=== PATIENT | female | born 1965 | race African-American/Black ===

== ENCOUNTER 2019-04-01 14:44 | Emergency (ER) | payer MEDICAID, OTHER ==
[~2019-04-01] VITALS: Ht 170.2 cm; Wt 81.0 kg
[2019-04-01 14:49] VITALS: Ht 170.2 cm; Wt 81.0 kg
--- NOTE | 2019-04-01 14:58 | ERD ---
ER Documentation Chief Complaint Chief Complaint SUICIDAL THOUGHTS , WANTS TO RUN INTO TRAFFIC , NECK , BACK PAIN HPI 53-year-old female who presents to the emergency room with depression, anxiety, suicidal thoughts with a plan to run into traffic. She states that she needs to talk to a psychiatrist to be hospitalized. She is immediately asking for food and narcotic pain medication for chronic neck and back pain. Her neck and back pain is subacute and chronic and similar to chronic pain without exacerbating signs or symptoms. She states that she needs Dilaudid for her pain. Pain is characterized as dull, constant and cannot characterize duration. ROS All systems reviewed and are negative except as per history of present illness. Medications Home Meds Unable to Obtain Active Prescriptions or Reported Meds Allergies Allergies: Coded Allergies: Unknown: Unable to obtain (Unverified , 04/01/19) FmHx Family History: No diabetes Physical Exam Vitals Vital Signs Date Temp Pulse Resp B/P (MAP) Pulse Ox O2 O2 Flow FiO2 Time Delivery Rate 04/01/19 98.1 90 18 151/82 98 14:49 (105) Physical Exam General: Well developed, well nourished, no acute distress Head: Normocephalic, atraumatic. Eyes: EOM intact ENT: Moist mucous membranes Neck: Full ROM Respiratory: No respiratory distress Cardiovascular: Well perfused distally Abdominal: Nondistended : Deferred MSK: No edema, no unilateral swelling, 5/5 strength Neurologic: Alert and oriented, moving all extremities, normal speech, steady gait Skin: No rash Psych: Depressed mood, suicidal ideation, plan Result Diagram: 04/01/19 1524 04/01/19 1524 Results 24 hrs Laboratory Tests Test 04/01/19 15:10 04/01/19 15:24 Urine Opiates Screen Negative Urine Barbiturates Negative Urine Amphetamines Screen Negative Urine Benzodiazepines Screen Positive Urine Cocaine Screen Negative Urine Cannabinoids Negative White Blood Count 6.7 10^3/ul Red Blood Count 3.92 10^6/ul Hemoglobin 11.4 g/dl Hematocrit 37.1 % Mean Corpuscular Volume 94.6 fl Mean Corpuscular Hemoglobin 29.1 pg Mean Corpuscular Hemoglobin Concent 30.7 g/dl Red Cell Distribution Width 13.9 % Platelet Count 222 10^3/UL Mean Platelet Volume 12.2 fl Immature Granulocytes % 0.400 % Neutrophils % 72.1 % Lymphocytes % 20.3 % Monocytes % 5.0 % Eosinophils % 1.8 % Basophils % 0.4 % Nucleated Red Blood Cells % 0.0 /100WBC Immature Granulocytes # 0.030 10^3/ul Neutrophils # 4.9 10^3/ul Lymphocytes # 1.4 10^3/ul Monocytes # 0.3 10^3/ul Eosinophils # 0.1 10^3/ul Basophils # 0.0 10^3/ul Nucleated Red Blood Cells # 0.0 10^3/ul Sodium Level 143 mmol/L Potassium Level 3.8 mmol/L Chloride Level 106 mmol/L Carbon Dioxide Level 27 mmol/L Anion Gap 10 Blood Urea Nitrogen 12 mg/dl Creatinine 0.72 mg/dl Est Glomerular Filtrat Rate mL/min > 60 mL/min Glucose Level 100 mg/dl Calcium Level 9.8 mg/dl Ethyl Alcohol Level < 10.0 mg/dl Current Medications Medications Dose Sig/Trace Start Time Status Last (Trade) Ordered Route PRN Stop Time Admin Dose Reason Admin 1 tab ONCE ONCE 04/01/19 DC 04/01/19 Acetaminophen PO 15:00 15:41 / 04/01/19 15:01 Hydrocodone Bitart ([place] ()) Procedures/MDM EKG/DIAGNOSTIC IMAGING: [None Required] LAB INTERPRETATION: [No acute process] MEDICAL DECISION MAKING: The patient's presentation is consistent with underlying psychiatric illness and likely exacerbation of this illness and/or psychosis. There is a very strong suspicion for drug-seeking behavior, malingering. The patient immediately is asking for food, drink and narcotic pain medication. Her suicidal thoughts seem to be an afterthought for her. However, the patient is describing possible plan and warrants psychiatric evaluation. I have a much lower clinical concern for delirium or acute organic pathology such as toxicologic, metabolic, ischemic, intracranial hemorrhage, infectious process. However, we must rule this out prior to relying a diagnosis of underlying psychiatric illness. The patient's workup will include medical screening examination and appropriate laboratory testing. If the patient's medical examination does not reveal acute organic pathology the patient will be medically cleared for psychiatric evaluation. ER COURSE: * Patient will not need IV or IM narcotics for chronic pain. A single dose of oral [place] will be provided. No further dosing necessary. * The patient's low back pain is unlikely related to serious etiology. The patient exhibits no clinical signs or symptoms and has no history or risk fac tors to suggest cauda equina, cord compression, epidural abscess, epidural hematoma, acute aortic aneurysm or dissection. * The patient's evaluation does not suggest an acute organic pathology. At this time I believe the patient's presentation is very consistent with underlying psychiatric illness. The patient is medically cleared for psychiatric evaluation. CONSULTATION: Psychiatric consultation: Telemetry medicine psychiatry has been consulted on this case to evaluate the patient for possible acute psychiatric illness that would require inpatient hospitalization. DISPOSITION PLAN: Pending psych placement Departure Diagnosis: Primary Impression: Suicidal ideation Additional Impressions: Chronic pain Chronic pain type: other chronic pain Qualified Codes: G89.29 - Other chronic pain Drug-seeking behavior Malingering Condition: Stable SUSANNA RODRIGUEZ MD April 01, 2019 14:58
[2019-04-01] MEDS ORDERED: HYDROCODONE/APAP (10/325) TAB PO ONE (15:00)
--- NOTE | 2019-04-01 16:20 | PSY ---
Date/Time of Note Date/Time of Note DATE: 04/01/19 TIME: 19:15 Psychiatric Subjective Eval Consent Pt consented to telemedicine: Yes Subjective Evaluation Patient location: emergency Chief Complaint: SUICIDAL THOUGHTS , WANTS TO RUN INTO TRAFFIC , NECK , BACK PAIN History of present illness HPI: 53 yo female comes to Ed reporting a desire for food and dilaudid and also reported that she wants to kill herself by running into traffic. Psych was consulted. Pt was very uncooperative, told Md she does not know why she is in ED, says the only med that works for her is xanax though did not report why she would need xanax. Denies si and denies that she reported si. Denies psychosis. Past Psych Hx: + psych admits denies ho suicide PMhx: denies All: pt says she can only take xanax MSE: uncooperative, would not look at MD, stays under covers, vague evasive pacheco es si poor insight/reliability Imp: 53 yo female previously reported si now denies voluntary psych admit for previous si For moderate agitation Zyprexa 5mg po prn For severe agitation chlorpromazine 25mg im prn consider re eval when pt able to better engage in interview Medical history Problems Medical Problems: (1) Chronic pain Status: Acute (2) Drug-seeking behavior Status: Acute (3) Malingering Status: Acute (4) Suicidal ideation Status: Acute Allergies: Coded Allergies: Unknown: Unable to obtain (Unverified , 04/01/19) Psychiatric Objective Eval Mental Status Examination: Laboratory Results Laboratory Tests Test 04/01/19 15:10 04/01/19 15:24 Urine Opiates Screen Negative Urine Barbiturates Negative Urine Amphetamines Screen Negative Urine Benzodiazepines Screen Positive Urine Cocaine Screen Negative Urine Cannabinoids Negative White Blood Count 6.7 10^3/ul Red Blood Count 3.92 10^6/ul Hemoglobin 11.4 g/dl Hematocrit 37.1 % Mean Corpuscular Volume 94.6 fl Mean Corpuscular Hemoglobin 29.1 pg Mean Corpuscular Hemoglobin Concent 30.7 g/dl Red Cell Distribution Width 13.9 % Platelet Count 222 10^3/UL Mean Platelet Volume 12.2 fl Immature Granulocytes % 0.400 % Neutrophils % 72.1 % Lymphocytes % 20.3 % Monocytes % 5.0 % Eosinophils % 1.8 % Basophils % 0.4 % Nucleated Red Blood Cells % 0.0 /100WBC Immature Granulocytes # 0.030 10^3/ul Neutrophils # 4.9 10^3/ul Lymphocytes # 1.4 10^3/ul Monocytes # 0.3 10^3/ul Eosinophils # 0.1 10^3/ul Basophils # 0.0 10^3/ul Nucleated Red Blood Cells # 0.0 10^3/ul Assessment and Plan Recommendation/Plan Multiple antipsychotics: No Discharge Disposition: Psychiatric inpatient Legal Status: Voluntary RAS GABRIEL April 01, 2019 16:20
[2019-04-01] MEDS ORDERED: LORAZEPAM 1 MG TAB PO ONE (19:00)
[2019-04-02] MEDS ORDERED: LORAZEPAM 1 MG TAB PO ONE (09:30)
[2019-04-02] MEDS ORDERED: HYDROCODONE/APAP (5/325) TAB PO ONE (09:30)
--- NOTE | 2019-04-02 12:02 | EN ---
Date/Time of Note Date/Time of Note DATE: 04/02/19 TIME: 11:58 ER Progress Note This is a 53-year-old female that had been initially seen and evaluated in the emergency department for depression and feelings of hopelessness. She had been in the emergency department for 21 hours and 17 minutes. She initially was seen by the telemetry psychiatrist and she did not meet criteria for 5150 but she did agree to a voluntary hold. However the patient now states she was no longer suicidal. She was not in any pain. She stated she wanted to be discharged. She was seen by our psychosocial rehabilitation counselor and we did feel that the patient was safe to be discharged as at this time the patient did not appear to be a threat to herself or others. She was given bus tokens to assist her back to her living facility. She was instructed however that she can return to the emergency department anytime if there is worsening of her symptoms. KIRSTEN TYSON MD April 02, 2019 12:02
[2019-04-02 12:17] VITALS: BP 124/68; PULSE 75; RESP 16
== END 2019-04-02 12:18 | disposition home or self-care (01) ==
LOC: E/R 14:44
DX: R45.851 Suicidal ideations (principal); G89.29 Other chronic pain; Z72.89 Other problems related to lifestyle
CPT/HCPCS: 80048; 80307; 84703; 85025; Z7502; Z7610; 99283

== ENCOUNTER 2019-05-17 23:27 | Emergency (ER) | payer MEDICAID ==
[~2019-05-17] VITALS: Ht 170.2 cm; Wt 82.0 kg
[2019-05-17 23:30] VITALS: Ht 170.2 cm; Wt 82.0 kg
--- NOTE | 2019-05-18 00:04 | ERD ---
ER Documentation Chief Complaint Chief Complaint Pt reports SI, R side numbness, Pt reports stroke 05/10/19 HPI This is a 53-year-old female with a history of anxiety and depression who prese nts for evaluation of generalized body pain, as well as suicidal ideations without a plan. The patient is very guarded on evaluation, and gives a limited history. She states that she had a stroke on May 10, she is withholding both of what her symptoms were as well as which hospital, states "I do not know I just have body pain". Additionally she states that she is feeling suicidal and anxious. ROS All systems reviewed and are negative except as per history of present illness. Medications Home Meds Unable to Obtain Active Prescriptions or Reported Meds Allergies Allergies: Coded Allergies: Unknown: Unable to obtain (Unverified , 04/01/19) PMhx/Soc History of Surgery: Yes (HYSTERECTOMY, TONSILLECTOMY) Anesthesia Reaction: No Hx Neurological Disorder: Yes (CVA) Hx Respiratory Disorders: No Hx Cardiac Disorders: No Hx Psychiatric Problems: Yes (DEPRESSION) Hx Miscellaneous Medical Probl: No Hx Alcohol Use: Yes Hx Substance Use: No Hx Tobacco Use: No Smoking Status: Unknown if ever smoked Physical Exam Vitals Vital Signs Date Temp Pulse Resp B/P (MAP) Pulse Ox O2 O2 Flow FiO2 Time Delivery Rate 05/17/19 97.8 68 20 124/77 98 Room Air 23:40 (93) 05/17/19 98.3 69 20 147/65 97 23:30 (92) Physical Exam Const: Well-developed, well-nourished, affect is flat Head: Atraumatic Eyes: Normal Conjunctiva ENT: Normal External Ears, Nose and Mouth. Neck: Full range of motion. No meningismus. Resp: Clear to auscultation bilaterally Cardio: Regular rate and rhythm, no murmurs Abd: Soft, non tender, non distended. Normal bowel sounds Skin: No petechiae or rashes Back: No midline or flank tenderness Ext: No cyanosis, or edema Neur: Awake and alert, cranial nerves II through XII intact, no cerebellar ataxia, speech is clear Psych: Normal Mood and Affect Procedures/MDM 53-year-old female presents for generalized body pain and anxiety. Patient reports a prior history of stroke, she reports no new deficits. On exam she has no focal neuro deficits, no signs or symptoms of an acute CVA. Additionally, she states that her symptoms have been going on since 10 May, when she was diagnosed in outside hospital that she would not be in the window for TPA. She is otherwise medically clear and afebrile and nontoxic-appearing, she will require psychiatric consult for suicidal ideations. Departure Diagnosis: Primary Impression: Suicidal ideation Condition: SAULO Jolley MD May 18, 2019 00:04
--- NOTE | 2019-05-18 00:19 | PSY ---
Date/Time of Note Date/Time of Note DATE: 05/18/19 TIME: 00:18 Psychiatric Subjective Eval Consent Pt consented to telemedicine: Yes Subjective Evaluation Patient location: emergency Chief Complaint: Pt reports SI, R side numbness, Pt reports stroke 05/10/19 Medical history Problems Medical Problems: (1) Chronic pain Status: Acute (2) Drug-seeking behavior Status: Acute (3) Malingering Status: Acute (4) Suicidal ideation Status: Acute (5) Suicidal ideation Status: Acute Allergies: Coded Allergies: Unknown: Unable to obtain (Unverified , 04/01/19) Assessment and Plan Recommendation/Plan Discharge Disposition: Other (Other) Legal Status: Voluntary Assessment Additional comments: IDENTIFYING INFORMATION: 53 year old AAF patient who is currently located at the hospital and for whom psychiatric consultation was requested. SOURCES OF INFORMATION: The patient who appears to be unreliable and the medical records; the nursing staff. CHIEF COMPLAINT: "I can not think right now". HISTORY OF PRESENT ILLNESS: The patient was interviewed via telemedicine in the presence of and under the supervision of nursing staff of the hospital. The consent to conducting this interview via telemedicine was obtained by the nursing staff at the hospital. FREDI Rivera reports that the patient presented with SI. The patient reports having SI and asked for Xanax, then terminated the interview prematurely. The patient is unable to answer questions at this time due to unclear reasons. PAST MEDICAL HISTORY: Unable to assess fully as the patient was not able to cooperate with the interview at this time. CURRENT MEDICATIONS: Unable to assess as the patient was not able to cooperate with the interview at this time. ALLERGIES TO MEDICATIONS: Unable to assess as the patient was not able to cooperate with the interview at this time. LABORATORY TESTS: pending. SOCIAL HISTORY: Unable to assess as the patient was not able to cooperate with the interview at this time. FAMILY HISTORY: Unable to assess as the patient was not able to cooperate with the interview at this time. REVIEW OF SYSTEMS: unable to assess due to the patient not being able to cooperate. MENTAL STATUS EXAMINATION: General Appearance and Behavior: uncooperative with the interview, reports that she cannot talk right now, refuses to conducting this interview were telemedicine, makes fair eye contact, fairly groomed, no abnormal movements noted. Speech: normal amount, normal rate, normal latency. Flow of thought: logical, . Content of thought: positive for suicidal ideation, Unable to assess further as the patient is not able to cooperate with the interview due to sedation. Mood: Unable to assess as the patient is not able to cooperate with the interview due to sedation. Affect: Unable to assess as the patient is not able to cooperate with the interview due to sedation. Attention: unable to assess fully. Insight: poor. Judgment: poor. Memory: Unable to assess as the patient is not able to cooperate with the interview due to sedation. Sensorium: alert,unable to assess further. ASSESSMENT: unable to formulate an assessment as the patient did not cooperate. PLAN: - Medication management: Would start haloperidol 5 mg IM PRN severe agitation q4 hours. Would start diphenhydramine 50 mg IM PRN severe agitation q4 hours. Would start lorazepam 2 mg IM PRN severe agitation q4 hours Will defer to the inpatient psychiatry team for other medication changes. - Labs: Please check CBC, CMP, Alcohol level, UDS. - Psychotherapy: unable to provide psychotherapy at this time due to the patient 's mental status. - Disposition: unable to formulate recommendations because the patient did not cooperate and I was unable to complete the interview. Discussed about the above plan with FREDI Rivera. Please reconsult psychiatry if the patient consents to telemedicine. MO ALVARADO MD May 18, 2019 00:19
--- NOTE | 2019-05-18 02:29 | PSY ---
Date/Time of Note Date/Time of Note DATE: 05/18/19 TIME: 02:25 Psychiatric Subjective Eval Consent Pt consented to telemedicine: Yes Subjective Evaluation Patient location: emergency Chief Complaint: Pt reports SI, R side numbness, Pt reports stroke 05/10/19 Reason for consult: SI Medical history Problems Medical Problems: (1) Chronic pain Status: Acute (2) Drug-seeking behavior Status: Acute (3) Malingering Status: Acute (4) Suicidal ideation Status: Acute (5) Suicidal ideation Status: Acute Allergies: Coded Allergies: Unknown: Unable to obtain (Unverified , 04/01/19) Social History DPA/Conservatorship: No Psychiatric Objective Eval Mental Status Examination: Laboratory Results Laboratory Tests Test 05/18/19 01:02 White Blood Count 6.7 10^3/ul Red Blood Count 3.85 10^6/ul Hemoglobin 11.3 g/dl Hematocrit 35.3 % Mean Corpuscular Volume 91.7 fl Mean Corpuscular Hemoglobin 29.4 pg Mean Corpuscular Hemoglobin Concent 32.0 g/dl Red Cell Distribution Width 12.9 % Platelet Count 224 10^3/UL Mean Platelet Volume 11.4 fl Immature Granulocytes % 0.300 % Neutrophils % 51.3 % Lymphocytes % 36.1 % Monocytes % 8.6 % Eosinophils % 3.1 % Basophils % 0.6 % Nucleated Red Blood Cells % 0.0 /100WBC Immature Granulocytes # 0.020 10^3/ul Neutrophils # 3.5 10^3/ul Lymphocytes # 2.4 10^3/ul Monocytes # 0.6 10^3/ul Eosinophils # 0.2 10^3/ul Basophils # 0.0 10^3/ul Nucleated Red Blood Cells # 0.0 10^3/ul Sodium Level 144 mmol/L Potassium Level 3.4 mmol/L Chloride Level 103 mmol/L Carbon Dioxide Level 32 mmol/L Anion Gap 9 Blood Urea Nitrogen 21 mg/dl Creatinine 0.90 mg/dl Est Glomerular Filtrat Rate mL/min > 60 mL/min Glucose Level 108 mg/dl Calcium Level 9.7 mg/dl Total Bilirubin 0.3 mg/dl Direct Bilirubin 0.00 mg/dl Indirect Bilirubin 0.3 mg/dl Aspartate Amino Transf (AST/SGOT) 23 IU/L Alanine Aminotransferase (ALT/SGPT) 20 IU/L Alkaline Phosphatase 133 IU/L Total Protein 7.9 g/dl Albumin 4.5 g/dl Globulin 3.40 g/dl Albumin/Globulin Ratio 1.32 Salicylates Level < 1.0 mg/dl Acetaminophen Level < 10.0 ug/ml Ethyl Alcohol Level < 10.0 mg/dl Assessment and Plan Recommendation/Plan Discharge Disposition: Psychiatric inpatient Legal Status: Place involuntary hold Assessment Additional comments: IDENTIFYING INFORMATION: 53 year old AAF patient who is currently located at the hospital and for whom psychiatric consultation was requested. SOURCES OF INFORMATION: The patient who appears to be unreliable and the medical records; the nursing staff. CHIEF COMPLAINT: "I had a stroke this past Tuesday". HISTORY OF PRESENT ILLNESS: The patient was interviewed via telemedicine in the presence of and under the supervision of nursing staff of the hospital. The consent to conducting this interview via telemedicine was obtained by the nursing staff at the hospital. FREDI Rivera reports that the patient presented with SI. The patient reports having SI and attempted to run into traffic to kill herself. Admits to depressed mood, anhedonia, low appetite, insomnia, The patient denies having AH, VH, delusions. The patient denies using alcohol heavily or regularly. The patient denies using any other substances. In terms of past psychiatric history, the patient reports having a history of past psychiatric hospitalizations. The patient reports having a history of no past suicide attempts. Past medication trials: multiple but she reports that she allergic to everything. PAST MEDICAL HISTORY: stroke, hypoglycemia, CHF. CURRENT MEDICATIONS: HTN medications. ALLERGIES TO MEDICATIONS: unable to assess. LABORATORY TESTS: CBC with hemoglobin of 11.3, hematocrit 35.3, CMP with potassium of 3.4, BUN 21, UDS pending, alcohol level not detected. SOCIAL HISTORY: homeless, single, has 4 children; not employed, not on disability. REVIEW OF SYSTEMS: Constitutional (e.g., fever, weight loss): negative; Eyes, Ears, Nose, Mouth, Throat: negative; Cardiovascular: negative; Respiratory: negative; Gastrointestinal: negative; Genitourinary: negative; Musculoskeletal: negative; Integumentary (skin and/or breast): negative; Neurological: negative; Psychiatric: as per HPI; Endocrine: negative; Hematologic/Lymphatic: negative; Allergic/Immunologic: negative. MENTAL STATUS EXAMINATION: General Appearance and Behavior: Calm, cooperative with the interview, pleasant with the current interviewer, makes fair eye contact, fairly groomed, no abnormal movements noted, Speech: Regular rate, regular rhythm, normal latency, normal volume, somewhat decreased amount, Flow of thought: sequential, logical, goal-directed, Content of thought: no auditory hallucinations, no visual hallucinations, no de lusions, positive for suicidal ideation; no homicidal ideation, Mood: "depressed", Affect: dysthymic, dysphoric, not reactive, Attention: normal based on the interview, Insight: fair, Judgment: poor, Memory: normal based on the interview, Sensorium: alert and oriented to person, place and date. ASSESSMENT: The patient's presentation and history are consistent with the diagnosis of unspecified mood disorder. The patient presents with depressive symptoms in the context of medication noncompliance, psychosocial stressors and medical stressors. No evidence of psychosis, bladimir, hypomania on exam. PLAN: - Medication management: Please watch for benzodiazepine withdrawal and treat accordingly with Ativan 2 mg by mouth. I offered to start antidepressants, but the patient declined explaining that he is allergic to all of them. Would start haloperidol 5 mg IM PRN severe agitation q4 hours. Would start diphenhydramine 50 mg IM PRN severe agitation q4 hours. Would start lorazepam 2 mg IM PRN severe agitation q4 hours Will defer to the inpatient psychiatry team for other medication changes. - Labs: Please check UDS. - Psychotherapy: Provided supportive psychotherapy and psychoeducation. - Disposition: Would recommend involuntary admission to the inpatient psychiatric unit given the severity of the patient's psychiatric condition and the fact that the patient is an imminent danger to self and/or others so long as the patient has been cleared medically for admission to psychiatry. Inpatient psychiatric admission is at this time the least restrictive environment where the patient can receive the psychiatric care that is needed. Would place on suicide precautions. The patient fulfills criteria for being placed on an involuntary hold for being a danger to self due to a psychiatric disorder. I called the emergency room physician who is taking care of the patient to discuss about the above plan but the emergency room physician is not available at this time. I left my phone number with the hospital staff requesting a ca llback so that the emergency room physician can reach me when they become available. MO ALVARADO MD May 18, 2019 02:29
[2019-05-18 12:57] VITALS: BP 111/69; PULSE 82; RESP 18
== END 2019-05-18 12:57 ==
LOC: E/R 23:27
DX: R45.851 Suicidal ideations (principal); R41.82 Altered mental status, unspecified
CPT/HCPCS: 36415; 70450; 80053; 80307; 81001; 85025; Z7502; Z7610; 93005